=== PATIENT | female | born 1955 | race Hispanic/Latino ===

== ENCOUNTER → 2020-08-29 | Day surgery (SDC) | payer OTHER, MEDICARE ==
[~2020-08-29] MED LIST: FENTANYL CITRATE/PF 100MCG/2 ML INJ ONE; NEURONTIN300 MG PO; OR PHACO EYE KIT ONE; PREOP PHACO EYE KIT ONE; VENLAFAXINE HCL75 M2 PO
[2020-08-29 12:20] VITALS: BP 126/70
== END | disposition home or self-care (01) ==
LOC: OR 10:26
PROVIDERS: ATTEND Ophthalmology
DX: H25.12 Age-related nuclear cataract, left eye (principal); K58.9 Irritable bowel syndrome, unspecified; F32.9 Major depressive disorder, single episode, unspecified; Z01.812 Encounter for preprocedural laboratory examination; Z20.822 Contact with and (suspected) exposure to COVID-19
CPT/HCPCS: 66984; J3010; U0002; V2632

== ENCOUNTER → 2020-09-12 | Day surgery (SDC) | payer OTHER, MEDICARE ==
[~2020-09-12] MED LIST changes: +MIDAZOLAM HCL 2 MG/2 ML VIAL ONE
[2020-09-12 13:30] VITALS: BP 119/70
== END | disposition home or self-care (01) ==
LOC: OR 10:17
PROVIDERS: ATTEND Ophthalmology
DX: H25.11 Age-related nuclear cataract, right eye (principal); K58.9 Irritable bowel syndrome, unspecified; K57.90 Diverticulosis of intestine, part unspecified, without perforation or abscess without bleeding; F32.9 Major depressive disorder, single episode, unspecified; Z01.812 Encounter for preprocedural laboratory examination; Z20.822 Contact with and (suspected) exposure to COVID-19; Z79.899 Other long term (current) drug therapy
CPT/HCPCS: 66984; J2250; J3010; U0002